=== PATIENT | female | born 1965 | race African-American/Black ===

== ENCOUNTER 2018-07-30 10:54 | Day surgery (SDC) | payer BC, OTHER ==
[2018-07-22 17:56] VITALS: BMI 35.3
[2018-07-30] MEDS ORDERED: DEXMEDETOMIDINE HCL 200 MCG/2 ML IVPB ONE (12:18)
[2018-07-30] MEDS ORDERED: MIDAZOLAM HCL 2 MG/2 ML SINGLE DOSE VIAL ONE (12:18)
[2018-07-30] MEDS ORDERED: BUPIVACAINE HCL/PF (5 MG/ML) 30 ML VIAL IJ ONE (12:19)
[2018-07-30] MEDS ORDERED: PROPOFOL 20 ML ONE (12:50)
[2018-07-30] MEDS ORDERED: ONDANSETRON 4 MG/2 ML VIAL ONE (12:52)
[2018-07-30] MEDS ORDERED: ceFAZolin SODIUM 1 GM VIAL ONE (12:52)
[2018-07-30] MEDS ORDERED: methylPREDNISolone NA SUCC 125 MG/2 ML VIAL ONE (12:52)
[2018-07-30] MEDS ORDERED: ePHEDrine SULFATE 50 MG/1 ML AMPULE ONE (13:06)
[2018-07-30] MEDS ORDERED: ONDANSETRON 4 MG/2 ML VIAL IVPUSH PRN (15:43)
[2018-07-30] MEDS ORDERED: PROMETHAZINE HCL 25 MG/1 ML VIAL IVPUSH PRN (15:43)
[2018-07-30] MEDS ORDERED: oxyCODONE HCL 5 MG TABLET PO PRN ×2 (15:43)
[2018-07-30] MEDS ORDERED: ACETAMINOPHEN 325 MG TABLET (FP) PO PRN (17:05)
[2018-07-30] MEDS ORDERED: BUMETANIDE 1 MG TABLET PO SCH (22:00)
[2018-07-30] MEDS ORDERED: oxyCODONE HCL 5 MG TABLET PO SCH (23:55)
[2018-07-31] MEDS ORDERED: oxyCODONE HCL 5 MG TABLET PO PRN (04:00)
[2018-07-31 06:48] VITALS: BP 92/48; PULSE 76; TEMP 98.6
--- NOTE | 2018-07-31 09:45 | PN ---
Progress Note, Physician Chief Complaint: s/p open right wrist surgery post op day one History of Present Illness: with peripheral nerve block for post op pain control - Current Medication List Current Medications: Active Medications Acetaminophen (Tylenol -) 650 mg PO Q4H PRN PRN Reason: PAIN Bumetanide (Bumex -) 3 mg PO DAILY [facility] Last Admin: 07/30/18 23:57 Dose: Not Given Ondansetron HCl (Zofran Injection) 4 mg IVPUSH Q6H PRN PRN Reason: NAUSEA AND/OR VOMITING Oxycodone HCl (Roxicodone -) 10 mg PO Q4H PRN PRN Reason: PAIN LEVEL 6-10 Oxycodone HCl (Roxicodone -) 5 mg PO Q4H NABILA Oxycodone HCl (Roxicodone -) 5 mg PO Q4H PRN PRN Reason: PAIN LEVEL 1-5 Last Admin: 07/31/18 04:00 Dose: 5 mg - Objective Vital Signs: Vital Signs Temperature 98.6 F 07/31/18 06:00 Pulse Rate 76 07/31/18 06:00 Respiratory Rate 18 07/31/18 06:00 Blood Pressure 92/48 L 07/31/18 06:00 O2 Sat by Pulse Oximetry (%) 98 07/31/18 06:00 Constitutional: Yes: Well Nourished Cardiovascular: Yes: WNL Respiratory: Yes: WNL Gastrointestinal: Yes: WNL Assessment/Plan No acute distress, no post anesthetic complications, pain controlled, no nausea or vomiting overnight. Dept of anesthesia will sign off care at this time
--- NOTE | 2018-08-04 11:01 | PATH ---
Surgical Pathology Report Patient Name: ARNOLD FATIMA [facility]. Rec. #: [id number] /Age/Gender: 1965 (Age: 52) / F Account: [id number] Location: [facility] Taken: 07/30/2018 Received: 07/30/2018 Reported: 08/04/2018 Physicians: Darrell Yun M.D. Specimen(s) Received A: TENOSYNOVIUM RIGHT WRIST B: SYNOVIUM RIGHT WRIST Clinical History Right wrist arthrodesis Final Diagnosis A. TENOSYNOVIUM, RIGHT WRIST, TENOSYNOVECTOMY: FIBROSYNOVIAL TISSUE SHOWING REACTIVE HYPERPLASIA, ACUTE AND CHRONIC INFLAMMATION AND FOCI OF OLD HEMORRHAGE. B. SYNOVIUM, RIGHT WRIST, SYNOVECTOMY: FIBROSYNOVIAL TISSUE SHOWING FIBRINO-INFLAMMATORY EXUDATE, REACTIVE HYPERPLASIA, ACUTE AND CHRONIC INFLAMMATION AND FIBROSIS. BONE, WITH NO PATHOLOGIC FINDINGS. Electronically Signed Kriss Rose M.D. Gross Description A. Received in formalin labeled "tenosynovium right wrist," is a 1.2 x 0.6 x 0.2 cm ibrahim-yellow portion of soft tissue, consistent with tenosynovium. The specimen is submitted in toto in one cassette. B. Received in formalin labeled "synovium right wrist," is a 1.5 x 1.3 x 0.3 cm aggregate of ibrahim-yellow portion of fibrous and soft tissue. The specimen is submitted in toto in one cassette. 07/31/201807/31/2018
--- NOTE | 2018-08-06 08:51 | OP ---
DATE OF OPERATION: 07/30/2018 PREOPERATIVE DIAGNOSIS: 1. 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 2. Right wrist extensor tenosynovitis. 3. Right wrist extensor tendon ruptures to long and ring fingers. 4. Right thumb severe arthrosis, IP joint. PROCEDURES: 1. Right wrist extensor tenosynovectomy. 2. Right wrist distal radioulnar joint synovectomy. 3. Tendon transfer of extensor indicis proprius to extensor digitorum communis to the long and ring fingers. 4. Right partial distal ulna resection. 5. Right thumb interphalangeal joint arthrodesis. SURGEON: Dedrick Cedeño MD IMPORT/EXPORT SPECIALIST: JOANN Kent ANESTHESIA: Regional with sedation. COMPLICATIONS: None. ESTIMATED BLOOD LOSS: Minimal. PROCEDURE: After proper identification of the patient and the correct operative site, the patient was brought to the operating room and placed supine on the operating table with all prominences well padded. Regional anesthesia was given by the anesthesiologist. The right upper extremity was prepped and draped in the usual sterile fashion. A well-padded tourniquet was placed after sterile prep. An Esmarch bandage was used to exsanguinate the right upper extremity and the tourniquet was inflated to 250 mmHg. A incision was made over the dorsal aspect of the wrist in line with the third metacarpal. The incision was taken sharply through the skin with blunt dissection through the subcutaneous tissues down to the level of the extensor retinaculum. There was severe bulging of the retinaculum throughout, including dorsally over the dorsal aspect of the hand. The retinaculum was divided over the third compartment. The extensor pollicis longus tendon was found to be intact and was released and transposed. The second dorsal compartment was intact with the tendons clearly okay. The fourth compartment was opened and severe synovitis was debrided from this area. The distal ulna was ruptured through the dorsal capsule and the bone spurs on the dorsal distal ulna were clearly the factor that caused the extensor tendon ruptures. The extensor tendons to the long and ring fingers were completely ruptured at the level of the wrist. The small finger extensor digitorum communis was ruptured but the extensor digit minimi was intact. Both tendons to the index finger were intact and healthy looking. At this point, a complete extensor tenosynovectomy was performed. A synovectomy of the distal radioulnar joint was then performed as well. A partial distal ulna resection was performed to avoid any further sharp edge affecting the tendons. The capsule over the distal radioulnar joint was then closed as well as possible. Then, a flap of the extensor retinaculum was used to cover this and all of the tendons were transposed. At the end of the procedure, a flap of the extensor retinaculum was also used to cover the dorsal aspect of the compartment. At this point, it was decided to perform a tendon transfer, as there was no good motor for the other tendons. The extensor indicis proprius was then divided at the dorsal aspect of the metatarsophalangeal joint to the index finger and brought into the field. The ring finger and long finger extensor tendons were sutured together in a [id number] fashion and then the extensor indicis proprius tendon was Pulvertaft weaved into this tendon mass to provide the transfer. Excellent cascade of the fingers was accomplished with appropriate tensioning with the wrist flexed and extended, allowing the metacarpal phalangeal joints to extend and flex as well. As noted previously, a slip of the extensor retinaculum was placed under and over this to provide a transposition and coverage of the distal ulna. The tendons glided smoothly through this as it was proximal to the anastomosis. The wound was then irrigated and repaired with 4-0 Vicryl and a 5-0 nylon sutures. Attention was then turned to the thumb. An "H"-shaped incision was made over the dorsal aspect of the IP joint. The incision was taken down to the level of the joint, which was jackknifed open. Severe arthrosis was noted. This was debrided and subchondral bone was achieved. A guidewire was then placed from the tip of the finger across the joint. This was reamed over and an OsteoMed 2.0-mm headless compression screw was placed in distal proximal fashion, attaining excellent compression at the arthrodesis site. Local bone graft was used from the reamings. The thumb was placed into a straight position with about 10 degrees of flexion at the IP joint. The tissue was then repaired with a 5-0 nylon suture. Sterile dressings were applied. X-rays were taken to confirm proper fusion site. The patient was placed into thumb spica and wrist splints. The wrist splint went up to the level of the PIP joints to keep the MPs in extension. The patient was reversed from sedation and brought to the recovery room in stable condition. She tolerated the procedure well. Virgil Moreno, the engineer second assistant, was integral throughout this procedure, which could not have been performed without a skilled operative engineer second assistant. ALEJANDRA CEDEÑO M.D. WHITNEY/[id number]
== END 2018-07-31 10:30 | disposition home or self-care (01) ==
LOC: FASU 10:54 → FM/S 18:39 → FASU 07-31 10:30
PROVIDERS: ATTEND Orthopaedic Surgery Hand Surgery
PROC: 0RGW07Z Fusion of Right Finger Phalangeal Joint with Autologous Tissue Substitute, Open Approach (ICD-10-PCS; 2018-07-30)
PROC: 0PBK0ZZ Excision of Right Ulna, Open Approach (ICD-10-PCS; 2018-07-30)
PROC: 0LX50ZZ Transfer Right Lower Arm and Wrist Tendon, Open Approach (ICD-10-PCS; 2018-07-30)
PROC: 0LB70ZZ Excision of Right Hand Tendon, Open Approach (ICD-10-PCS; principal; 2018-07-30 12:30)
DX: M19.031 Primary osteoarthritis, right wrist (principal); M65.841 Other synovitis and tenosynovitis, right hand; M66.241 Spontaneous rupture of extensor tendons, right hand; M19.041 Primary osteoarthritis, right hand
CPT/HCPCS: 73130-TC-RT-FY; 88304-TC; 94760

== ENCOUNTER 2020-06-29 06:13 | Day surgery (SDC) | payer BC, OTHER ==
[2020-06-27 13:04] VITALS: BMI 31.5
[2020-06-29] MEDS ORDERED: PROPOFOL 20 ML ONE (07:04)
[2020-06-29] MEDS ORDERED: MIDAZOLAM HCL 2 MG/2 ML SINGLE DOSE VIAL ONE (07:04)
[2020-06-29] MEDS ORDERED: LIDOCAINE HCL/PF 2% SDV 5ML VIAL ONE (07:05)
[2020-06-29] MEDS ORDERED: DEXAMETHASONE SOD PHOSPHATE 4 MG/1 ML VIAL ONE (07:05)
[2020-06-29] MEDS ORDERED: ONDANSETRON 4 MG/2 ML VIAL ONE (07:05)
[2020-06-29] MEDS ORDERED: LIDOCAINE HCL 2% (20ML MULTI-DOSE VIAL) ONE (07:10)
[2020-06-29] MEDS ORDERED: ceFAZolin SODIUM 1 GM VIAL ONE (07:53)
[2020-06-29] MEDS ORDERED: ceFAZolin SODIUM 1 GM VIAL IVPB ONE (07:54)
[2020-06-29] MEDS ORDERED: EPHEDRINE SULFATE/0.9% NACL/PF 50 MG/10 ML SYRINGE NR ONE (08:24)
[2020-06-29] MEDS ORDERED: ONDANSETRON 4 MG/2 ML VIAL IVPUSH PRN (08:35)
[2020-06-29] MEDS ORDERED: oxyCODONE HCL 5 MG TABLET PO PRN (08:35)
[2020-06-29] MEDS ORDERED: LACTATED RINGERS SOLUTION 1,000 ML IV SCH (08:45)
[2020-06-29] MEDS ORDERED: BUPIVACAINE HCL/PF 0.5% (5 MG/ML) 30 ML VIAL IJ ONE (09:43)
[2020-06-29 12:04] LABS: ALBUMIN 2.5 g/dl (3.4-5.0); BILIRUBIN,TOTAL 0.3 mg/dl (0.2-1); CALCIUM 10.6 mg/dl (8.5-10); POTASSIUM 4.1 mmol/L (3.5-5.1); TOT PROT 9.7 g/dl (6.4-8.2)
[2020-06-29] MEDS ORDERED: oxyCODONE HCL 5 MG TABLET ONE (13:23)
[2020-06-29 13:32] VITALS: PULSE 80
[2020-06-29 19:23] VITALS: BP 105/59; TEMP 97.9
== END 2020-06-29 15:00 | disposition home or self-care (01) ==
LOC: FASU 06:13
PROVIDERS: ATTEND Orthopaedic Surgery Hand Surgery
PROC: 0PBL0ZZ Excision of Left Ulna, Open Approach (ICD-10-PCS; 2020-06-29)
PROC: 0LX60ZZ Transfer Left Lower Arm and Wrist Tendon, Open Approach (ICD-10-PCS; 2020-06-29)
PROC: 0LX60ZZ Transfer Left Lower Arm and Wrist Tendon, Open Approach (ICD-10-PCS; 2020-06-29)
PROC: 0LX60ZZ Transfer Left Lower Arm and Wrist Tendon, Open Approach (ICD-10-PCS; 2020-06-29)
PROC: 0LB60ZZ Excision of Left Lower Arm and Wrist Tendon, Open Approach (ICD-10-PCS; principal; 2020-06-29 07:30)
DX: M66.242 Spontaneous rupture of extensor tendons, left hand (principal); M19.032 Primary osteoarthritis, left wrist; M65.849 Other synovitis and tenosynovitis, unspecified hand
CPT/HCPCS: 36415; 80053; 88304-TC; 88305-TC; 88311-TC; 94760